=== PATIENT | male | born 1970 | race Caucasian/White ===

== ENCOUNTER 2022-06-06 07:42 | Outpatient (REF) | payer OTHER, SELFPAY ==
[2022-06-06 08:35] LABS: Hematocrit 46.6 % (42.0-52.0); Hemoglobin 15.5 g/dl (14.0-18.0); Mean Corpuscular HGB Conc 33.3 g/dl (31.0-36.0); Mean Corpuscular Volume 84.3 fL (80.0-98.0); Platelet Count 203 X10*3/uL (160-400); Red Blood Count 5.53 X10*6/uL (4.60-5.80); Red Cell Distribution Width 12.8 % (11.0-16.0); White Blood Count 4.6 X10*3/uL (4.8-10.8)
[2022-06-06 09:03] LABS: Alanine Aminotransferase 14 U/L (0-40); Albumin Level 4.3 g/dL (3.5-5.0); Alkaline Phosphatase 71 U/L (39-117); Anion Gap 13 (12-20); Aspartate Amino Transferase 17 U/L (5-37); Bilirubin Total 0.6 mg/dL (0.0-1.0); Blood Urea Nitrogen 15 mg/dL (9-16); Calcium 9.3 mg/dL (8.4-10.2); Carbon Dioxide 25 mmol/L (22-29); Chloride 107 mmol/L (96-108); Cholesterol 232 mg/dL; Estimated Glomerular Filt Rate > 60; Glucose Fasting 93 mg/dL (60-99); HDL Cholesterol 43 mg/dL; LDL Cholesterol Calculated 165 mg/dl; Potassium 4.4 mmol/L (3.3-5.1); Sodium 141 mmol/L (135-145); Total Protein 6.7 g/dL (6.5-8.0); Triglycerides 124 mg/dL
[2022-06-06 09:26] LABS: Prostate Specific Antigen Scr 0.52 ng/mL (<0.05-4.0)
== END 2022-06-06 07:43 | disposition home or self-care (01) ==
LOC: HO.LAB 07:42
PROVIDERS: PCP Physician Assistant; Visit Provider Physician Assistant
DX: Z12.5 Encounter for screening for malignant neoplasm of prostate (principal); Z13.29 Encounter for screening for other suspected endocrine disorder; E66.09 Other obesity due to excess calories; Z68.31 Body mass index [BMI] 31.0-31.9, adult; Z80.42 Family history of malignant neoplasm of prostate
CPT/HCPCS: 36415; 80053; 80061; 84153; 84443; 85027

== ENCOUNTER 2023-06-19 07:52 | Outpatient (AMB) | payer OTHER, SELFPAY ==
--- NOTE | 2023-06-19 07:57 | A.OFFPC_ITS ---
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 Required: No Accompanied by: Self / Same As Patient Allergies No Known Allergies Allergy (Verified 06/19/23 08:05) Medication List - Last Reconciled 06/19/23 by Michael Ramirez PA-C No Known Home Meds Tobacco use date assessed: 06/19/23 Dental Screening Dental Screen Date: 06/19/23 Did you have a dental visit in the last 12 months?: Yes Did you have a dental problem in the last 6 months where you did not have access to dental care?: No Was dental information given to patient?: Patient has dentist HPI Worried about low testosterone; prostate exam HPI Details Patient is a 52-year-old male here today for a follow-up visit.? Patient has a past medical history of obesity, microscopic hematuria, family history of prostate cancer. Recently did labs for integrative Medicine doctor. He is seeing. Cholesterol elevated and free testosterone slightly low. Of note patient was not fasting for his cholesterol labs. Concerns--> Family history of prostate cancer. Most recent PSA at 0.52. Has noted a decreased urinary Will continue to follow on annual basis. .. Obese:? Does understand his BMI is over 30 will work on being more physically active in adapting to better eating habits to reduce his weight VAccine: UTD with COVID vaccine, UTD with Flu vaccine, UTD with Tdap, need Shingles Colorectal cancer screen: Has gotten colonoscopy Sep 2019 - clean repeat 10 years. Lab work: Most recent lab work showing borderline high total cholesterol Laboratory Tests 06/06/22 07:59 Cholesterol 232 PSA Screen 0.52 TSH 1.80 PFSH Medical History Microscopic hematuria Hypercholesteremia Family history of malignant neoplasm of prostate Surgical History H/O colonoscopy History of right knee joint replacement H/O vasectomy Family History Father Prostate cancer Paternal Grandfather Prostate cancer Mother Lung cancer Sister Thyroid cancer Breast cancer Social History (Updated 06/19/23 @ 08:17 by Michael Ramirez PA-C) Housing: House Alcohol intake: current Alcohol intake frequency: a few times a week Alcohol type: beer Patient Tobacco Use Status: Former Tobacco user Quit Date: 1979 e-Cigarette/Vaping Use: Never Used Second Hand Smoke Exposure: No service: No Current occupational status: employed 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 1. Little interest or pleasure in doing things: not at all 2. Feeling down, depressed, or hopeless: not at all 3. Trouble falling or staying asleep, or sleeping too much: not at all 4. Feeling tired or having little energy: not at all 5. Poor appetite or overeating: not at all 6. Feeling bad about yourself - or that you are a failure or have let yourself or your family down: not at all 7. Trouble concentrating on things, such as reading the newspaper or watching television: not at all 8. Moving or speaking so slowly that other people could have noticed. Or the opposite - being so fidgety or restless that you have been moving around a lot more than usual: not at all 9. Thoughts that you would be better off or of hurting yourself in some way: not at all Total score: 0 Depression Screening Interpretation: Negative 86488 - PHQ-9 Billing: Yes Source: Developed by Drs. Frantz Perez, Kim Marcus, Tomi Flores and colleagues, with an educational chacha from [employer]. Thrive Questionnaire Date Thrive assessed: 06/19/23 I am a: Patient What is your living situation today?: I have a steady place to live Within the past 12 months, did the food you bought not last and you didn't have the money to get more?: Never true Within the past 12 months, did you worry whether your food would run out before you got money to buy more?: Never true Do you have trouble paying for medicines?: No Do you have trouble getting transportation to medical appointments?: No Do you have trouble paying your heating and electricity bill?: No Do you have trouble taking care of your child, family member or friend?: No Do you have trouble with day-to-day activities such as bathing, preparing meals, shopping, managing finances, etc.?: No Are you currently unemployed and looking for a job?: No Are you interested in more education?: No Please select the resources that you would like help with: None Currently or been in a relationship where the following occur: no concerns reported AUDIT C Alcohol Use Questionnaire (AUDIT-C) 1. How often do you have a drink containing alcohol?: 2-3 times a week 2. How many drinks containing alcohol do you have on a typical day when you are drinking?: 1 or 2 3. How often do you have six or more drinks on one occasion?: Less than monthly Total Score: 4 MAGUI-7 AMB Questionnaire MAGUI-7 Date MAGUI - 7 assessed: 06/19/23 Feeling nervous, anxious, or on edge: 0 = Not at all Not being able to stop or control worryin = Not at all Worrying too much about different things: 0 = Not at all Trouble relaxin = Not at all Being so restless that it is hard to sit still: 0 = Not at all Becoming easily annoyed or irritable: 0 = Not at all Feeling afraid as if something awful might happen: 0 = Not at all Total MAGUI-7 score (0-4 normal; 5-9 mild; 10-14 moderate; 15-21 severe): 0 Source: Developed by Drs. Frantz Perez, Kim Marcus, Tomi Flores and colleagues, with an educational chacha from [employer]. MAGUI-7 Assessment Billing MAGUI-7 Assessment Tool: MAGUI-7 Assessment 49364 Review of Systems Const Denies body aches, Denies chills, Denies excessive sweating, Denies fatigue, Denies fever(s) and Denies headache(s) Eyes Denies blurry vision ENT Denies dysphagia, Denies vertigo, Denies dizziness, Denies headache(s), Denies hearing loss and Denies tinnitus Card Denies chest pain, Denies chest pain with activity, Denies syncope, Denies irregular heart rhythm and Denies dyspnea Resp Denies chest congestion, Denies cough, Denies hemoptysis, Denies dyspnea and Denies wheezing GI Denies abdominal pain, Denies melena, Denies hematochezia, Denies coffee ground emesis, Denies dysphagia, Denies diarrhea, Denies nausea and Denies vomiting Denies difficulty urinating, Denies dysuria, Denies urinary frequency, Denies urinary hesitancy and Denies urinary urgency Musc Denies arthralgias, Denies limited range of motion, Denies muscle cramps and Denies muscle weakness Skin/Breast Denies rash and Denies skin ulcer Neuro Denies Abnormal speech present, Denies confusion, Denies vertigo, Denies dizziness, Denies syncope, Denies headache(s), Denies memory loss and Denies seizure-like activity Psych Denies anxiety, Denies confusion, Denies depression, Denies memory loss, Denies panic attacks and Denies paranoia Endo Denies excessive sweating, Denies fatigue, Denies flushing, Denies polydipsia and Denies polyuria John/Lymph Denies easy bleeding and Denies easy bruising Aller/Immun Denies wheezing Physical exam (Primary Care) BMI result Body Mass Index 30.9 BMI Assessment/Plan discussion: High Tobacco/Smoking Status: Tobacco use Status Tobacco use date assessed 05/02/22 07/03/22 11:40 Patient Tobacco Use Status Former Tobacco user 07/03/22 11:47 e-Cigarette/Vaping Use Never Used 07/03/22 11:47 Depression Screening Interpretation: Negative Thrive Assessment: Date of Thrive Assessment Date Thrive assessed 05/02/22 07/03/22 11:40 Currently or been in a relationship where the following occur: no concerns reported Const General: cooperative, comfortable, no acute distress, alert and awake; No confusion Nutritional Appearance: well nourished Orientation/consciousness: oriented to person, oriented to place, patient oriented x3 and No confusion HENMT Head: Yes normocephalic Ears: external ears normal and TM's normal bilaterally General nose exam: Normal nasal mucous membranes and turbinates present Face and sinus: No sinus tenderness Mouth: Normal oral and palatal mucosa present and tongue normal Teeth and gingiva: dentition normal and gingiva normal Throat: Yes posterior oropharynx normal, Yes tonsils normal and Yes uvula midline Eyes Conjunctivae: conjunctivae normal Sclerae: sclerae normal Pupils: Equal, round and reactive pupils present EOM: EOMs intact bilaterally Direct Ophthalmoscopy: No no photophobia Neck Neck: Yes no lymphadenopathy, No tender and Yes no JVD Thyroid: Thyroid normal Carotids: no bruits Chest Chest palpation & inspection: no tenderness Resp Effort & Inspection: normal respiratory effort, no audible wheezes, not labored and no stridor Auscultation: no crackles, no rales, no rhonchi and no wheezes Cardio Jugular venous distension: no JVD Rate: regular rate, not bradycardic and not tachycardic Rhythm: regular rhythm Heart sounds: no murmurs and normal S1 and S2 Bruits: no carotid bruits Peripheral pulses: Peripheral pulses 2+ throughout GI Inspection: Yes normal to inspection, No abdominal wall ecchymosis and No visible herniation Palpation (GI): Soft to palpation, nontender, no guarding, not rigid and No hepatosplenomegaly present Auscultation: normoactive bowel sounds General: Yes no CVA tenderness Back/Spine/Pelvis Back: no CVA tenderness and No back tenderness Cervical Spine: cervical ROM normal Thoracic/Lumbar Spine: thoracic and lumbar spine normal to inspection, straight leg raise negative bilaterally, No thoraco-lumbar ROM limited and No lumbar spinal tenderness Skin General skin exam: no rashes or lesions noted and dry skin Lesions: no lesions Rashes: no rashes Wounds: no wounds Neuro General: oriented to person, oriented to place, patient oriented x3, CN's II-XI intact bilaterally and No confusion Cranial nerves: Yes Equal, round and reactive pupils present and Yes Normal accommodation reflex present Cognition (Neuro): normal cognition Speech: No Abnormal speech present Gait exam (Neuro): Normal gait present Motor exam (neuro): 5/5 motor strength present throughout Extrem Right upper extremity: full ROM; no cyanosis Left upper extremity: full ROM; no cyanosis Right lower extremity: no edema Left lower extremity: no edema Psych Appearance: grossly normal Mental Status: mental status grossly normal Speech and movement: Normal speech and movement present Affect: normal affect Attitude: cooperative Thought process: Normal thought process present Assessment and Plan Assessment & Plan (1) Family history of prostate cancer in father: Code(s): Z80.42 - Family history of malignant neoplasm of prostate Plan: Patient is a strong family history particularly prostate cancer. Most recent PSA is 0.52. He does report some noticeable weak urinary stream. Not interested in starting medication at this time would like to work on natural nonpharmacological treatments. Interested in pelvic floor therapy. Will continue to follow PSA on annual basis. (2) Obese: Code(s): E66.9 - Obesity, unspecified Qualifiers: Obesity type: due to excess calories Obesity classification: adult class 1 (BMI 30 - 34.9) Serious obesity comorbidity presence: without serious comorbidity Body mass index: BMI 31.0-31.9 Qualified Code(s): E66.09 - Other obesity due to excess calories; Z68.31 - Body mass index [BMI] 31.0-31.9, adult Plan: Have noted weight loss since last office visit. Patient does understand his BMI is over 30 will work on being more physically active and adapting to better eating habits to reduce his weight (3) Borderline high cholesterol: Code(s): E78.9 - Disorder of lipoprotein metabolism, unspecified Plan: Patient's most recent fasting lipid panel showing borderline high total cholesterol. He will work on lifestyle modifications to reduce his high cholesterol foods in his diet. Goal total cholesterol to be below 200 (4) BPH (benign prostatic hyperplasia): Code(s): N40.0 - Benign prostatic hyperplasia without lower urinary tract symptoms Qualifiers: Lower urinary tract symptom presence: symptoms present Lower urinary tract symptom detail: unspecified Qualified Code(s): N40.1 - Benign prostatic hyperplasia with lower urinary tract symptoms Plan: Prostate exam today in office revealing somewhat of a enlarged prostate though no nodules. Orders: Orders Prostate Specific Antigen Scr Today N40.1 - Benign prostatic hyperplasia with lower urinary tract symptoms, Z12.5 - Encounter for screening for malignant neoplasm of prostate Lipid Panel Today E78.9 - Disorder of lipoprotein metabolism, unspecified Comprehensive [place]. Panel Fast Today Z13.1 - Encounter for screening for diabetes mellitus Coding Level of Care Code Est Pt Level 4 (62568) Diagnoses Family history of prostate cancer in father Z80.42 Class 1 obesity due to excess calories without serious comorbidity with body mass index (BMI) of 31.0 to 31.9 in adult E66.09; Z68.31 Obesity type: due to excess calories Obesity classification: adult class 1 (BMI 30 - 34.9) Serious obesity comorbidity presence: without serious comorbidity Body mass index: BMI 31.0-31.9 Borderline high cholesterol E78.9 Benign prostatic hyperplasia with lower urinary tract symptoms, symptom details unspecified N40.1 Lower urinary tract symptom presence: symptoms present Lower urinary tract symptom detail: unspecified Additional Codes MAGUI-7 Assessment Billing - MAGUI-7 Assessment Tool: MAGUI-7 Assessment 20456 ([id number])
[2023-06-19 07:59] VITALS: BP 118/86; PULSE 76; O2SAT 97; BMI 30.9
== END 2023-06-19 08:30 | disposition home or self-care (01) ==
PROVIDERS: PCP Physician Assistant; Visit Provider Physician Assistant
DX: Z80.42 Family history of malignant neoplasm of prostate (principal); E66.09 Other obesity due to excess calories; Z68.31 Body mass index [BMI] 31.0-31.9, adult; E78.9 Disorder of lipoprotein metabolism, unspecified; N40.1 Benign prostatic hyperplasia with lower urinary tract symptoms
CPT/HCPCS: 99214

== ENCOUNTER 2023-07-09 06:08 | Outpatient (REF) | payer OTHER, SELFPAY ==
[2023-07-09 07:01] LABS: Hematocrit 45.5 % (42.0-52.0); Hemoglobin 15.5 g/dl (14.0-18.0); Mean Corpuscular HGB Conc 34.1 g/dl (31.0-36.0); Mean Platelet Volume 10.3 fL (9.4-12.4); Platelet Count 197 X10*3/uL (160-400); Red Blood Count 5.35 X10*6/uL (4.60-5.80); Red Cell Distribution Width 12.7 % (11.0-16.0)
[2023-07-09 07:23] LABS: Alanine Aminotransferase 12 U/L (0-40); Alkaline Phosphatase 75 U/L (39-117); Anion Gap 12 (12-20); Aspartate Amino Transferase 17 U/L (5-37); Bilirubin Total 0.3 mg/dL (0.0-1.0); Blood Urea Nitrogen 14 mg/dL (9-16); Calcium 9.3 mg/dL (8.4-10.2); Carbon Dioxide 25 mmol/L (22-29); Chloride 107 mmol/L (96-108); Cholesterol 245 mg/dL (<200); Estimated Glomerular Filt Rate > 60; Glucose Fasting 91 mg/dL (60-99); HDL Cholesterol 40 mg/dL (>40); LDL Cholesterol Calculated 168 mg/dL (<100); Potassium 4.3 mmol/L (3.3-5.1); Sodium 140 mmol/L (135-145); Total Protein 6.8 g/dL (6.5-8.0); Triglycerides 188 mg/dL (<150)
[2023-07-09 07:30] LABS: Prostate Specific Antigen Scr 0.57 ng/mL (<0.05-4.0)
[2023-07-09 07:31] LABS: TSH reflex Free T4 2.26 uIU/mL (0.32-4.0)
== END 2023-07-09 06:09 | disposition home or self-care (01) ==
LOC: HO.LAB 06:08
PROVIDERS: PCP Physician Assistant; Visit Provider Physician Assistant
DX: Z12.5 Encounter for screening for malignant neoplasm of prostate (principal); Z13.1 Encounter for screening for diabetes mellitus; E78.9 Disorder of lipoprotein metabolism, unspecified; Z80.42 Family history of malignant neoplasm of prostate; E78.00 Pure hypercholesterolemia, unspecified; E66.9 Obesity, unspecified
CPT/HCPCS: 36415; 80053; 80061; 84153; 84443; 85027

== ENCOUNTER 2023-09-09 08:00 | Outpatient (RCR) | payer OTHER, SELFPAY ==
--- NOTE | 2023-07-29 08:58 | MHC.PT.EP ---
[facility] [place] [facility] [place] [facility] [place] [facility] [address] Vandana Carroll [address] [phone] F: [phone] F: [phone] F: [phone] F: [phone] Physical Therapy Plan of Care Date of Evaluation: 07/29/23 Date of Surgery: NA Diagnosis: Benign prostatic hyperplasia with lower urinary tract symptoms Poor urinary stream Assessment: Andres is a 52 year old male who is referred to PT for Benign prostatic hyperplasia with lower urinary tract symptoms, Poor urinary stream . He reports of having symptoms of difficulty initiating a stream and slowed stream for about 3 years. He was diagnosed with BPH last year. He is here in PT to learn exercises to prevent his symptoms from getting worse. On PT examination he presented with good lumbar and B LE ROM and strength, symptoms of slowed stream and difficulty initiating a stream. He denies having any other bladder or bowel issues. He is sexually active and occasionally has difficulty with maintaining an erection. He would benefit from skilled PT to address the aforementioned impairments and improve tolerance to functional activities. Frequency and Duration: The patient will be seen 1/week for 6 weeks. Short Term Goals: 1. Internal pelvic floor exam will be done in 2 weeks. 2. Pt will report of having 50% less difficulty with bladder emptying in 3 weeks. 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 Pt will report of having an 50% improvement in urinary stream in 5 weeks. 2. Pt will be independent with [facility] for symptom management and maintenance following d/c in 5 weeks. Treatment Plan: Modalities to reduce pain, spasms and effusion. Manual therapy to restore motion and function. Therapeutic exercise to improve strength and flexibility. Neuromuscular re-education for posture and balance. Therapeutic activities to return to functional activities of daily living. Electronically signed by: Please sign and return to therapist. Thank you for your referral.
--- NOTE | 2023-09-23 09:28 | MHC.PT.DC ---
[facility] [place] Office [place] Office [place] Office [address] Vandana Carroll [address] [phone] F: [phone] F: [phone] F: [phone] F: [phone] Physical Therapy Discharge Report Diagnosis: Benign prostatic hyperplasia with lower urinary tract symptoms Poor urinary stream Date of Surgery: NA Date of Evaluation: 07/29/23 Date of Discharge: 09/23/23 Treatments to Date: 3 Cancellations to Date: 0 No Shows to Date: 0 Discharge Status: Achieved Goals Improved Function Independent with HEP Discharge Summary: Andres completed 3 PT visits and has achieved all goals set for him. He is independent with all HEP as well. He is therefore being d/c from PT. Electronically signed by: Negra Slaughter, PT DPT Please sign and return to therapist. Thank you for your referral.
== END 2023-09-23 09:29 | disposition home or self-care (01) ==
LOC: HO.PT 08:00
PROVIDERS: PCP Physician Assistant; Visit Provider Physician Assistant
DX: N40.1 Benign prostatic hyperplasia with lower urinary tract symptoms (principal); R39.12 Poor urinary stream
CPT/HCPCS: 97112; 97140; 97161

== ENCOUNTER 2024-07-08 07:51 | Outpatient (AMB) | payer OTHER, SELFPAY ==
[2024-07-08 08:05] VITALS: BP 118/72; PULSE 80; O2SAT 98; BMI 31.8
--- NOTE | 2024-07-08 08:05 | A.OFFPC_ITS ---
Vital Signs 3 07/08/24 08:05 Height 6 ft 1 in Weight 241 lb BMI 31.8 BP 118/72 Blood Pressure Location Lt brachial Position Sitting Pulse 80 Pulse Source Pulse Oximeter Pulse Oximetry (%) 98 Oxygen Delivery Method Room Air Intake Visit Reasons: Annual Exam Allergies No Known Allergies Allergy (Verified 07/08/24 08:12) Medication List - Last Reconciled 07/08/24 by Michael Ramirez PA-C No Known Home Meds Tobacco use date assessed: 07/08/24 Dental Screening Dental Screen Date: 07/08/24 Did you have a dental visit in the last 12 months?: Yes Did you have a dental problem in the last 6 months where you did not have access to dental care?: No Was dental information given to patient?: Patient has dentist HPI Annual Exam 2 HPI0 Details Patient is a 53-year-old male here today for a routine annual physical.? Patient has a past medical history of obesity, microscopic hematuria, family history of prostate cancer. Recently did labs for integrative Medicine doctor. He is seeing. Cholesterol elevated and free testosterone slightly low. Of note patient was not fasting for his cholesterol labs. Concerns-->reports having right knee pain and swelling lately, has has ACL repair at age 24. He reports lately having some pain and decreased range of motion in his right knee. He does not know any particular recent trauma to his right knee. He would like to see orthopedic for evaluation. Also reports having a rash behind his left ear. Has been using topical steroid antifungal cream without any significant resolution of his rash. Family history of prostate cancer. Most recent PSA at 0.52. Has noted a decreased urinary Will continue to follow on annual basis. .. Obese: Unfortunately gained weight since last office visit. He does admit to some dietary indiscretion. ? Does understand his BMI is over 30 will work on being more physically active in adapting to better eating habits to reduce his weight Vaccine: UTD with COVID vaccine, considering flu vaccine, , up-to-date with the shingles vaccine, ? Tdap vaccine Colorectal cancer screen: Has gotten colonoscopy Sep 2019 - clean repeat 10 years. [facility] Medical History Microscopic hematuria Hypercholesteremia Family history of malignant neoplasm of prostate Surgical History H/O colonoscopy History of right knee joint replacement H/O vasectomy Family History Father Prostate cancer Paternal Grandfather Prostate cancer Mother Lung cancer Sister Thyroid cancer Breast cancer Social History (Updated 07/08/24 @ 08:19 by Michael Ramirez PA-C) Housing: House Alcohol intake: current Alcohol intake frequency: a few times a week Alcohol type: beer Patient Tobacco Use Status: Former Tobacco user Tobacco use type: Cigarette e-Cigarette/Vaping Use: Never Used Second Hand Smoke Exposure: No service: No Current occupational status: employed 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 1. Little interest or pleasure in doing things: not at all 2. Feeling down, depressed, or hopeless: not at all 3. Trouble falling or staying asleep, or sleeping too much: not at all 4. Feeling tired or having little energy: several days 5. Poor appetite or overeating: not at all 6. Feeling bad about yourself - or that you are a failure or have let yourself or your family down: not at all 7. Trouble concentrating on things, such as reading the newspaper or watching television: not at all 8. Moving or speaking so slowly that other people could have noticed. Or the opposite - being so fidgety or restless that you have been moving around a lot more than usual: not at all 9. Thoughts that you would be better off or of hurting yourself in some way: not at all Total score: 1 Depression Screening Interpretation: Negative Depression Screening Done: Yes 35568 - PHQ-9 Billing: Yes Source: Developed by Drs. Frantz Perez, Kim Marcus, Tomi Flores and colleagues, with an educational chacha from [employer]. Thrive Questionnaire Date Thrive assessed: 07/06/24 I am a: Patient What is your living situation today?: I have a steady place to live Within the past 12 months, did the food you bought not last and you didn't have the money to get more?: Never true Within the past 12 months, did you worry whether your food would run out before you got money to buy more?: Never true Do you have trouble paying for medicines?: No Do you have trouble getting transportation to medical appointments?: No Do you have trouble paying your heating and electricity bill?: No Do you have trouble taking care of your child, family member or friend?: No Do you have trouble with day-to-day activities such as bathing, preparing meals, shopping, managing finances, etc.?: No Are you currently unemployed and looking for a job?: No Are you interested in more education?: No Please select the resources that you would like help with: None Currently or been in a relationship where the following occur: No concerns reported THRIVE Score: 0 AUDIT C Alcohol Use Questionnaire (AUDIT-C) 1. How often do you have a drink containing alcohol?: 2-3 times a week 2. How many drinks containing alcohol do you have on a typical day when you are drinking?: 1 or 2 3. How often do you have six or more drinks on one occasion?: Less than monthly Total Score: 4 MAGUI-7 AMB Questionnaire MAGUI-7 Date MAGUI - 7 assessed: 07/08/24 Feeling nervous, anxious, or on edge: 0 = Not at all Not being able to stop or control worryin = Not at all Worrying too much about different things: 0 = Not at all Trouble relaxin = Not at all Being so restless that it is hard to sit still: 0 = Not at all Becoming easily annoyed or irritable: 0 = Not at all Feeling afraid as if something awful might happen: 0 = Not at all Total MAGUI-7 score (0-4 normal; 5-9 mild; 10-14 moderate; 15-21 severe): 0 Source: Developed by Drs. Frantz Perez, Kim Marcus, Tomi Flores and colleagues, with an educational chacha from [employer]. MAGUI-7 Assessment Billing MAGUI-7 Assessment Tool: MAGUI-7 Assessment 90009 Review of Systems Const Denies body aches, Denies chills, Denies excessive sweating, Denies fatigue, Denies fever(s) and Denies headache(s) Eyes Denies blurry vision ENT Denies dysphagia, Denies vertigo, Denies dizziness, Denies headache(s), Denies hearing loss and Denies tinnitus Card Denies chest pain, Denies chest pain with activity, Denies syncope, Denies irregular heart rhythm and Denies dyspnea Resp Denies chest congestion, Denies cough, Denies hemoptysis, Denies dyspnea and Denies wheezing GI Denies abdominal pain, Denies melena, Denies hematochezia, Denies coffee ground emesis, Denies dysphagia, Denies diarrhea, Denies nausea and Denies vomiting Denies difficulty urinating, Denies dysuria, Denies urinary frequency, Denies urinary hesitancy and Denies urinary urgency Musc Denies arthralgias, Denies limited range of motion, Denies muscle cramps and Denies muscle weakness Skin/Breast Denies rash and Denies skin ulcer Neuro Denies Abnormal speech present, Denies confusion, Denies vertigo, Denies dizziness, Denies syncope, Denies headache(s), Denies memory loss and Denies seizure-like activity Psych Denies anxiety, Denies confusion, Denies depression, Denies memory loss, Denies panic attacks and Denies paranoia Endo Denies excessive sweating, Denies fatigue, Denies flushing, Denies polydipsia and Denies polyuria Aller/Immun Denies wheezing Physical exam (Primary Care) Vital Signs: Last Vital Signs Pulse 80 07/08/24 08:05 BP 118/72 07/08/24 08:05 Pulse Ox 98 07/08/24 08:05 Oxygen Delivery Method Room Air 07/08/24 08:05 BMI result Body Mass Index 31.8 Tobacco/Smoking Status: Tobacco use Status Tobacco use date assessed 07/08/24 07/08/24 08:11 Patient Tobacco Use Status Former Tobacco user 07/08/24 08:11 Tobacco use type Cigarette 07/08/24 08:11 e-Cigarette/Vaping Use Never Used 07/08/24 08:11 PHQ-9: PHQ-9 Score PHQ-9: Total score 1 07/08/24 08:11 Depression Screening Interpretation: Negative Thrive Assessment: Date of Thrive Assessment Date Thrive assessed 07/06/24 07/08/24 08:11 Currently or been in a relationship where the following occur: No concerns reported Const General: cooperative, comfortable, no acute distress, alert and awake; No confusion Orientation/consciousness: oriented to person, oriented to place, patient oriented x3 and No confusion HENIN Head: Yes normocephalic Head images: 2 1. SLIGHTLY PINKISH DRY APPEARANCE RAISED SKIN RASH BEHIND LEFT EAR. Ears: external ears normal and TM's normal bilaterally Face and sinus: No sinus tenderness Mouth: Normal oral and palatal mucosa present and tongue normal Teeth and gingiva: dentition normal and gingiva normal Throat: Yes posterior oropharynx normal, Yes tonsils normal and Yes uvula midline Eyes Conjunctivae: conjunctivae normal Sclerae: sclerae normal Pupils: Equal, round and reactive pupils present EOM: EOMs intact bilaterally Direct Ophthalmoscopy: No no photophobia Neck Neck: Yes no lymphadenopathy, No tender and Yes no JVD Thyroid: Thyroid normal Carotids: no bruits Chest Chest palpation & inspection: no tenderness Resp Effort & Inspection: normal respiratory effort, no audible wheezes, not labored and no stridor Auscultation: no crackles, no rales, no rhonchi and no wheezes Cardio Jugular venous distension: no JVD Rate: regular rate, not bradycardic and not tachycardic Rhythm: regular rhythm Bruits: no carotid bruits Peripheral pulses: Peripheral pulses 2+ throughout GI Inspection: Yes normal to inspection, No abdominal wall ecchymosis and No visible herniation Palpation (GI): Soft to palpation, nontender, no guarding, not rigid and No hepatosplenomegaly present Auscultation: normoactive bowel sounds General: Yes no CVA tenderness Back/Spine/Pelvis Back: no CVA tenderness and No back tenderness Cervical Spine: cervical ROM normal Thoracic/Lumbar Spine: thoracic and lumbar spine normal to inspection, straight leg raise negative bilaterally, No thoraco-lumbar ROM limited and No lumbar spinal tenderness Skin Lesions: no lesions Rashes: no rashes Wounds: no wounds Neuro General: oriented to person, oriented to place, patient oriented x3, CN's II-XI intact bilaterally and No confusion Cranial nerves: Yes Equal, round and reactive pupils present and Yes Normal accommodation reflex present Cognition (Neuro): normal cognition Speech: No Abnormal speech present Gait exam (Neuro): Normal gait present Motor exam (neuro): 5/5 motor strength present throughout Extrem Right upper extremity: full ROM; no cyanosis Left upper extremity: full ROM; no cyanosis Right lower extremity: no edema Left lower extremity: no edema Psych Appearance: grossly normal Mental Status: mental status grossly normal Affect: normal affect Attitude: cooperative Thought process: Normal thought process present Coding Level of Care Code Est Pt Prev Care 40-64y(84930) Diagnoses Annual physical exam Z00.00 Borderline high cholesterol E78.9 Dermatitis L30.9 Family history of prostate cancer in father Z80.42 Chronic pain of right knee M25.561; G89.29 Chronicity: chronic Additional Codes MAGUI-7 Assessment Billing - MAGUI-7 Assessment Tool: MAGUI-7 Assessment 15167 ([id number]) Assessment & Plan Assessment & Plan (1) Annual physical exam: Code(s): Z00.00 - Encounter for general adult medical examination without abnormal findings Category: Medical Plan: As per HPI (2) Borderline high cholesterol: Code(s): E78.9 - Disorder of lipoprotein metabolism, unspecified Category: Medical Plan: Patient has a history of borderline cholesterol. Has been working on dietary and lifestyle modifications to reduce his cholesterol. Will recheck fasting lipids with goal total cholesterol to be below 200 (3) Dermatitis: Code(s): L30.9 - Dermatitis, unspecified Category: Medical Plan: As per HPI, patient has had a rash behind left ear for few weeks now and has been using antifungal cream without much relief. Interested in seeing a reverberatory furnace supervisor for evaluation. Will supply patient with a topical steroid ointment as appearance seems to be eczematous (4) Family history of prostate cancer in father: Code(s): Z80.42 - Family history of malignant neoplasm of prostate Category: Medical Plan: Patient does have strong family history of prostate cancer. Most recent PSA has been normal. Will continue to follow PSA. Denies any particular urinary symptoms though does report getting up once at night to urinate though he attributes to fluid intake in the afternoons. (5) Right knee pain: Code(s): M25.561 - Pain in right knee Category: Medical Qualifiers: Chronicity: chronic Qualified Code(s): M25.561 - Pain in right knee; G89.29 - Other chronic pain Plan: Patient has a history of a traumatic right ACL tear with repair I would he is 24. He has been having some pain and swelling with certain movements and would like to see orthopedic for evaluation. Orders: Orders 2 Prostate Specific Antigen Scr Today N40.1 - Benign prostatic hyperplasia with lower urinary tract symptoms, Z12.5 - Encounter for screening for malignant neoplasm of prostate Complete Blood Count no Diff Today Z13.1 - Encounter for screening for diabetes mellitus Lipid Panel Today E78.9 - Disorder of lipoprotein metabolism, unspecified Comprehensive [place]. Panel Fast Today Z13.1 - Encounter for screening for diabetes mellitus Referrals 2 Dermatology Referral L30.9 - Dermatitis, unspecified Orthopedics Referral G89.29 - Other chronic pain, M25.561 - Pain in right knee Medications: New 2 triamcinolone acetonide 0.1% 1 appl topical DAILY 30 days 30 grams 1RF L30.9 - Dermatitis, unspecified
== END 2024-07-08 08:35 | disposition home or self-care (01) ==
PROVIDERS: PCP Physician Assistant; Visit Provider Physician Assistant
DX: Z00.00 Encounter for general adult medical examination without abnormal findings (principal); E78.9 Disorder of lipoprotein metabolism, unspecified; L30.9 Dermatitis, unspecified; Z80.42 Family history of malignant neoplasm of prostate; M25.561 Pain in right knee; G89.29 Other chronic pain

== ENCOUNTER → 2024-07-08 07:51 | Outpatient (BNVA) | payer OTHER, SELFPAY | PROVIDERS: PCP Physician Assistant; Visit Provider Physician Assistant | DX: Z00.01 Encounter for general adult medical examination with abnormal findings (principal); E78.9 Disorder of lipoprotein metabolism, unspecified; L30.9 Dermatitis, unspecified; G89.29 Other chronic pain; M25.561 Pain in right knee; Z80.42 Family history of malignant neoplasm of prostate | CPT/HCPCS: 96127 ==

== ENCOUNTER 2024-08-03 08:07 | Outpatient (REF) | payer OTHER, SELFPAY ==
[2024-08-03 09:27] LABS: Hematocrit 43.5 % (42.0-52.0); Hemoglobin 14.7 g/dl (14.0-18.0); Mean Corpuscular HGB Conc 33.8 g/dl (31.0-36.0); Mean Corpuscular Hemoglobin 28.4 pg (27.0-33.0); Mean Corpuscular Volume 84.1 fL (80.0-98.0); Mean Platelet Volume 10.3 fL (9.4-12.4); Platelet Count 198 X10*3/uL (160-400); Red Blood Count 5.17 X10*6/uL (4.60-5.80); Red Cell Distribution Width 12.8 % (11.0-16.0)
[2024-08-03 09:57] LABS: Alanine Aminotransferase 12 U/L (0-40); Anion Gap 9 (12-20); Aspartate Amino Transferase 21 U/L (5-37); Bilirubin Total 0.5 mg/dL (0.0-1.0); Blood Urea Nitrogen 19 mg/dL (9-16); Calcium 9.1 mg/dL (8.4-10.2); Carbon Dioxide 26 mmol/L (22-29); Chloride 107 mmol/L (96-108); Cholesterol 204 mg/dL (<200); Estimated Glomerular Filt Rate > 60; Glucose Fasting 98 mg/dL (60-99); HDL Cholesterol 41 mg/dL (>40); Potassium 4.2 mmol/L (3.3-5.1); Sodium 138 mmol/L (135-145); Total Protein 6.8 g/dL (6.5-8.0); Triglycerides 150 mg/dL (<150)
[2024-08-03 09:58] LABS: Alkaline Phosphatase 80 U/L (39-117); LDL Cholesterol Calculated 133 mg/dL (<100)
[2024-08-03 10:08] LABS: Prostate Specific Antigen Scr 0.64 ng/mL (<0.05-4.0)
== END 2024-08-03 08:08 | disposition home or self-care (01) ==
LOC: HO.LAB 08:07
PROVIDERS: PCP Physician Assistant; Visit Provider Physician Assistant
DX: Z13.1 Encounter for screening for diabetes mellitus (principal); Z12.5 Encounter for screening for malignant neoplasm of prostate; N40.1 Benign prostatic hyperplasia with lower urinary tract symptoms; E78.9 Disorder of lipoprotein metabolism, unspecified
CPT/HCPCS: 36415; 80053; 80061; 84153; 85027

== ENCOUNTER 2024-08-12 08:41 | Outpatient (REF) | payer OTHER, SELFPAY ==
--- NOTE | ~2024-08-12 | XR_ITS ---
EXAMINATION: BILATERAL KNEE SERIES CLINICAL INFORMATION: Primary osteoarthritis. COMPARISON: None available. TECHNIQUE: 3 views of the right knee including AP upright. Single AP upright left knee FINDINGS: Right knee: Postoperative changes related to prior anterior cruciate ligament reconstruction with screw in proximal tibia and orthopedic device overlying the anterior lateral metaphysis of the femur. Patellofemoral compartment: There is non-uniform joint space narrowing marginal osteophytes indicative of mzxm-th-zwhqzyue osteoarthritis. The medial and lateral compartments are unremarkable. No effusion. Left knee: The medial and lateral compartments are unremarkable. Surrounding bone and soft tissues are unremarkable. XR/XR knee RT 3V IMPRESSION: Right knee: Postoperative changes. Patellofemoral joint arthritis. Left knee: Limited exam. Unremarkable. Electronically signed by: Cornel Zarco MD 08/18/2024 11:49 AM [facility] CHAUDHARI
--- NOTE | ~2024-08-12 | XR_ITS ---
EXAMINATION: BILATERAL KNEE SERIES CLINICAL INFORMATION: Primary osteoarthritis. COMPARISON: None available. TECHNIQUE: 3 views of the right knee including AP upright. Single AP upright left knee FINDINGS: Right knee: Postoperative changes related to prior anterior cruciate ligament reconstruction with screw in proximal tibia and orthopedic device overlying the anterior lateral metaphysis of the femur. Patellofemoral compartment: There is non-uniform joint space narrowing marginal osteophytes indicative of hxpy-sl-yjyziqly osteoarthritis. The medial and lateral compartments are unremarkable. No effusion. Left knee: The medial and lateral compartments are unremarkable. Surrounding bone and soft tissues are unremarkable. XR/XR knee LT 1V IMPRESSION: Right knee: Postoperative changes. Patellofemoral joint arthritis. Left knee: Limited exam. Unremarkable. Electronically signed by: Cornel Zarco MD 08/18/2024 11:49 AM [facility] CHAUDHARI
== END 2024-08-12 08:42 | disposition home or self-care (01) ==
LOC: HO.HOSX 08:41
PROVIDERS: Visit Provider Physician Assistant
DX: M25.562 Pain in left knee (principal); M17.11 Unilateral primary osteoarthritis, right knee
CPT/HCPCS: 73560; 73562

== ENCOUNTER 2024-08-12 08:58 | Outpatient (AMB) | payer OTHER, SELFPAY ==
--- NOTE | 2024-08-12 09:09 | A.OFFVIS_ITS ---
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 Hx of ACL repair at age 24. Patient was recently seen by his PCP who referred patient to orthopedics for pain and decreased ROM. Denies any recent injury. Patient reports his pain has been present for the past 5-6 years. No recent treatment. States he regularly exercises however he is unable to do certain exercises such as lunging. His pain is located around and under his kneecap. 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 States he has most of his pain with deep knee lunging. He has some stiffness in the morning but it does ease up throughout the day. He is active and works out every day. 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 He does not have a lot of increased pain with prolonged standing. He had a right knee ACL reconstruction approximately 25 years ago. [facility] Medical History (Updated 08/12/24 @ 09:36 by Sheba Azevedo PA-C) Microscopic hematuria Hypercholesteremia Family history of malignant neoplasm of prostate Surgical History (Updated 08/12/24 @ 09:14 by Cammy Burt [facility]) H/O colonoscopy History of right knee joint replacement H/O vasectomy Family History Father Prostate cancer Paternal Grandfather Prostate cancer Mother Lung cancer Sister Thyroid cancer Breast cancer Social History (Updated 07/08/24 @ 08:19 by Michael Ramirez PA-C) Housing: House Alcohol intake: current Alcohol intake frequency: a few times a week Alcohol type: beer Patient Tobacco Use Status: Former Tobacco user Tobacco use type: Cigarette e-Cigarette/Vaping Use: Never Used Second Hand Smoke Exposure: No service: No Current occupational status: employed 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 Current occupational exposures/hazards: No Cognitive needs: No Hearing needs: No Vision needs: Yes Review of Systems Const All systems reviewed & are unremarkable except as noted in HPI and below Physical Exam Vital Signs: BMI result Body Mass Index 31.8 Const General: cooperative and no acute distress Orientation/consciousness: patient oriented x3 Resp Effort & Inspection: normal respiratory effort and able to speak in complete sentences Cardio Peripheral pulses: Peripheral pulses 2+ throughout Neuro General: patient oriented x3 Extrem Other: Right knee skin intact, no erythema or joint effusion. No Tenderness along the medial joint line. ROM full with crepitus. Negative steinmans. No ligamentous laxity. NVI. Results Reviewed Results Reviewed: X-rays of the right knee obtained in the office today show lateralization of the patella with patellofemoral arthritis. Assessment & Plan Assessment & Plan (1) Patellofemoral arthritis of right knee: Code(s): M17.11 - Unilateral primary osteoarthritis, right knee Category: Medical Plan: We discussed options today which include physical therapy for quad strength hamstring strength glute strength to help with stabilization. I did discuss possible modification of activity with deep lunging activities if this continues to cause knee pain. Overall he can increase activities as tolerated it has any questions or concerns she will contact our office otherwise follow up as needed. Orders: Orders XR knee RT 3V Today M17.11 - Unilateral primary osteoarthritis, right knee XR knee LT 1V Today M25.562 - Pain in left knee PT Evaluation and Treatment Today M17.11 - Unilateral primary osteoarthritis, right knee Coding Level of Care Code New Pt Level 3 (48944) Complex EM visit Add On G2211 Diagnoses Patellofemoral arthritis of right knee M17.11
[2024-08-12 09:14] VITALS: BMI 31.8
== END 2024-08-12 09:36 | disposition home or self-care (01) ==
PROVIDERS: PCP Physician Assistant; Visit Provider Physician Assistant
DX: M17.11 Unilateral primary osteoarthritis, right knee (principal)
CPT/HCPCS: 99203

== ENCOUNTER 2024-10-14 13:57 | Outpatient (RCR) | payer OTHER, SELFPAY ==
--- NOTE | 2024-09-07 11:38 | MHC.PT.EP ---
[facility] [place] Office [place] Office [place] Office [address] [phone] F: [phone] F: [phone] F: [phone] F: [phone] Physical Therapy Plan of Care Date of Evaluation: 09/07/24 Date of Surgery: Diagnosis: Rt KNEE PATELLOFEMORAL ARTHRITIS Assessment: 54 YO MALE REF TO PT W PROGRESSIVE Rt PFPS- H/O Rt ACL RECONSTRUCTION W HIS HS AUTOGRAFT IN 1994. HE DENIES TRAUMA- NOTES HE GOES TO THE GYM 5 x WK FOR CLASSES- HE HAS DECR MJ TO DESCENDING STAIRS, LUNGING, SQUATTING, AND INCR SXS IN THE AM. OBJECTIVELY, HE HAS DECR Rt PATELLAR MOB, STRENGTH DEFICITS IN CORE MM (TA/ INT OBL AND GLUTES), DECR TERMINAL EXT Rt > lT KNEE, ITB IMPACTING Rt LAT KNEE, AND FLUCTUATING PAIN IN Rt PATELLA-> ACTIVITY DEPENDENT. THE Pt IS VERY MOTIVATED FOR PT TO REVISE HEP AND ADDRESS THE ABOVE FINDINGS FOR OPTIMAL SX MGMT. HE AGREES W THE PT POC AND WE WILL PROCEED ACCORDINGLY. Frequency and Duration: The patient will be seen 2 x WK x 4 WKS Short Term Goals: DECR Rt KNEE/ PATELLAR PAIN TO 2-3/10 AT MAX INITIATE HEP-> Pt DEMON APPROP CORE ENGAGEMENT W PROGR EX IMPROVE SQUAT MECHANICS INCR HIP/ ITB / CALF FLEXIB INCR EFFICIENT GLUTE ACTIV Chcf Goals: Pt INDEP W HEP AND SELF SX MGMT TECHN Pt RESUME / PERF REG ADLs-> ECCENTRIC STAIR MGMT/ LUNGES/ FITNESS W/O EXACERBATION OF Rt KNEE SXS Rt LE STRENGTH INCR BY 1 GRADE/ EFFICIENT W LUMBOPELVUC STAB Treatment Plan: Modalities to reduce pain, spasms and effusion. Manual therapy to restore motion and function. Therapeutic exercise to improve strength and flexibility. Neuromuscular re-education for posture and balance. Therapeutic activities to return to functional activities of daily living. Electronically signed by: DONNELL NIXON,PT Please sign and return to therapist. Thank you for your referral.
--- NOTE | 2024-12-21 09:25 | MHC.PT.DC ---
[facility] [place] Office [place] Office [place] Office [address] [phone] F: [phone] F: [phone] F: [phone] F: [phone] Physical Therapy Discharge Report Diagnosis: Rt KNEE PATELLOFEMORAL ARTHRITIS Date of Surgery: Date of Evaluation: 09/07/24 Date of Discharge: 12/21/24 Treatments to Date: 6 Cancellations to Date: 3 No Shows to Date: Discharge Status: Achieved Goals Improved Function Independent with HEP Discharge Summary: RICKY PROGRESSED WELL IN PT- WE MODIFIED AND ADVANCED HIS HEP, EDUC RE EXER TO AVOID IN HIS GYM CLASSES-> HE HAD MILD Rt PFPS W ADLS REQ INCR ECCENTRIC QUAD WORK, WHICH, WAS DECR BY INCR HIP HINGE TO DECR COMPENSATORY ANT TIBIAL TRANSLATION. HE IS INDEP W SELF- KT APPLIC TO REDUCE INFRAPTELLAR FAT PAD IRRIT- THE Pt DID NOT ATTEND LAST SCHED PT SESSION, THEREFORE, A FORMAL REASSESSMENT WAS NOT PERF. Electronically signed by: DONNELL NIXON,PT Please sign and return to therapist. Thank you for your referral.
== END 2024-12-21 09:26 | disposition home or self-care (01) ==
LOC: HO.PT 13:57
PROVIDERS: PCP Physician Assistant; Visit Provider Physician Assistant
DX: M17.11 Unilateral primary osteoarthritis, right knee (principal)
CPT/HCPCS: 97110; 97140; 97162; 97530

== ENCOUNTER 2025-07-12 09:00 | Outpatient (AMB) | payer OTHER, SELFPAY ==
[2025-07-12 09:10] VITALS: BP 148/100; PULSE 76; TEMP 36.3; O2SAT 95; BMI 32.1
--- NOTE | 2025-07-12 09:10 | A.OFFPC_ITS ---
Vital Signs 07/12/25 09:10 Height 6 ft 1 in Weight 243 lb 6 oz BMI 32.1 BP 148/100 H Blood Pressure Location Lt brachial Position Sitting Pulse 76 Pulse Source Pulse Oximeter Temp 97.3 F Temp Source Temporal Artery Scan Pulse Oximetry (%) 95 Oxygen Delivery Method Room Air Intake Visit Reasons: Annual Exam Allergies shellfish derived Allergy (Verified 07/12/25 09:16) itchy throat Medication List - Last Reconciled 07/12/25 by Michael Ramirez PA-C No Known Home Meds Tobacco use date assessed: 07/12/25 Dental Screening Dental Screen Date: 07/12/25 Did you have a dental visit in the last 12 months?: Yes Did you have a dental problem in the last 6 months where you did not have access to dental care?: No Was dental information given to patient?: Patient has dentist HPI Annual Exam HPI Details Patient is a 54-year-old male here today for a routine annual physical.? Patient has a past medical history of obesity, microscopic hematuria, family history of prostate cancer. Concern-- > Have noted elevated blood pressure readings today 140 systolic and above. He will commence blood pressure monitoring at home. . The patient experiences sleep disturbances, characterized by snoring and non- restorative sleep. He is concerned about the possibility of obstructive sleep apnea and is interested in undergoing a sleep study. Also The patient describes intermittent episodes of anxiety manifested as(? Shortness of breath), which he attributes to stress related to recent life changes, including job loss and financial concerns. He has previously engaged in therapy but discontinued due to financial constraints. Family history of prostate cancer. Most recent PSA at 0.52. Has noted a decreased urinary Will continue to follow on annual basis. .. Class 1 Obese: Unfortunately gained weight since last office visit. He does admit to some dietary indiscretion. ? Does understand his BMI is over 30 will work on being more physically active in adapting to better eating habits to reduce his weight Vaccine: UTD with COVID vaccine, considering flu vaccine, , up-to-date with the shingles vaccine, ? Tdap vaccine Colorectal cancer screen: Has gotten colonoscopy Sep 2019 - clean repeat 10 years. [facility] Medical History Microscopic hematuria Hypercholesteremia Family history of malignant neoplasm of prostate Surgical History H/O colonoscopy History of right knee joint replacement H/O vasectomy Family History Father Prostate cancer Paternal Grandfather Prostate cancer Mother Lung cancer Sister Thyroid cancer Breast cancer Social History (Updated 07/12/25 @ 09:22 by Michael Ramirez PA-C) Housing: House Alcohol intake: current Alcohol intake frequency: a few times a month Alcohol type: beer Patient Tobacco Use Status: Former Tobacco user Tobacco use type: Cigarette e-Cigarette/Vaping Use: Never Used Second Hand Smoke Exposure: No service: No Current occupational status: employed 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 1. Little interest or pleasure in doing things: not at all 2. Feeling down, depressed, or hopeless: several days 3. Trouble falling or staying asleep, or sleeping too much: several days 4. Feeling tired or having little energy: several days 5. Poor appetite or overeating: not at all 6. Feeling bad about yourself - or that you are a failure or have let yourself or your family down: several days 7. Trouble concentrating on things, such as reading the newspaper or watching television: not at all 8. Moving or speaking so slowly that other people could have noticed. Or the opposite - being so fidgety or restless that you have been moving around a lot more than usual: not at all 9. Thoughts that you would be better off or of hurting yourself in some way: not at all Total score: 4 Depression Screening Interpretation: Positive Depression Screening Follow-up: Existing condition Depression Screening Done: Yes 70900 - PHQ-9 Billing: Yes Source: Developed by Drs. Frantz Perez, Kim Marcus, Tomi Flores and colleagues, with an educational chacha from [employer]. Thrive Questionnaire Date Thrive assessed: 07/05/25 I am a: Patient What is your living situation today?: I have a steady place to live Within the past 12 months, did the food you bought not last and you didn't have the money to get more?: Never true Within the past 12 months, did you worry whether your food would run out before you got money to buy more?: Never true Do you have trouble paying for medicines?: No Do you have trouble getting transportation to medical appointments?: No Do you have trouble paying your heating and electricity bill?: No Do you have trouble taking care of your child, family member or friend?: No Do you have trouble with day-to-day activities such as bathing, preparing meals, shopping, managing finances, etc.?: No Are you currently unemployed and looking for a job?: Yes Are you interested in more education?: No Please select the resources that you would like help with: None Currently or been in a relationship where the following occur: No concerns reported THRIVE Score: 0 AUDIT C Alcohol Use Questionnaire (AUDIT-C) 1. How often do you have a drink containing alcohol?: 2-4 times a month 2. How many drinks containing alcohol do you have on a typical day when you are drinking?: 1 or 2 3. How often do you have six or more drinks on one occasion?: Less than monthly Total Score: 3 MAGUI-7 AMB Questionnaire MAGUI-7 Date MAGUI - 7 assessed: 07/12/25 Feeling nervous, anxious, or on edge: 1 = Several days Not being able to stop or control worryin = Several days Worrying too much about different things: 1 = Several days Trouble relaxin = Several days Being so restless that it is hard to sit still: 0 = Not at all Becoming easily annoyed or irritable: 0 = Not at all Feeling afraid as if something awful might happen: 0 = Not at all Total MAGUI-7 score (0-4 normal; 5-9 mild; 10-14 moderate; 15-21 severe): 4 Source: Developed by Drs. Frantz Perez, Kim Marcus, Tomi Flores and colleagues, with an educational chacha from [employer]. MAGUI-7 Assessment Billing MAGUI-7 Assessment Tool: MAGUI-7 Assessment 92906 Review of Systems Const Denies body aches, Denies chills, Denies excessive sweating, Denies fatigue, Denies fever(s) and Denies headache(s) Eyes Denies blurry vision ENT Denies dysphagia, Denies vertigo, Denies dizziness, Denies headache(s), Denies hearing loss and Denies tinnitus Card Denies chest pain, Denies chest pain with activity, Denies syncope, Denies irregular heart rhythm and Denies dyspnea Resp Denies chest congestion, Denies cough, Denies hemoptysis, Denies dyspnea and Denies wheezing GI Denies abdominal pain, Denies melena, Denies hematochezia, Denies coffee ground emesis, Denies dysphagia, Denies diarrhea, Denies nausea and Denies vomiting Denies difficulty urinating, Denies dysuria, Denies urinary frequency, Denies urinary hesitancy and Denies urinary urgency Musc Denies arthralgias, Denies limited range of motion, Denies muscle cramps and Denies muscle weakness Skin/Breast Denies rash and Denies skin ulcer Neuro Denies Abnormal speech present, Denies confusion, Denies vertigo, Denies dizziness, Denies syncope, Denies headache(s), Denies memory loss and Denies seizure-like activity Psych Denies anxiety, Denies confusion, Denies depression, Denies memory loss, Denies panic attacks and Denies paranoia Endo Denies excessive sweating, Denies fatigue, Denies flushing, Denies polydipsia and Denies polyuria Aller/Immun Denies wheezing Physical exam (Primary Care) Vital Signs: Last Vital Signs Temp 97.3 F 07/12/25 09:10 Pulse 76 07/12/25 09:10 BP 148/100 H 07/12/25 09:10 Pulse Ox 95 07/12/25 09:10 Oxygen Delivery Method Room Air 07/12/25 09:10 BMI result Body Mass Index 32.1 BMI Assessment/Plan discussion: High BMI High, discussed plan: lifestyle, weight reduction, dietary and physical activity Tobacco/Smoking Status: Tobacco use Status Tobacco use date assessed 07/12/25 07/12/25 09:13 Patient Tobacco Use Status Former Tobacco user 07/12/25 09:22 Tobacco use type Cigarette 07/12/25 09:22 e-Cigarette/Vaping Use Never Used 07/12/25 09:22 PHQ-9: PHQ-9 Score PHQ-9: Total score 4 07/12/25 09:54 Depression Screening Interpretation: Positive Depression Screening Follow-up: Existing condition Thrive Assessment: Date of Thrive Assessment Date Thrive assessed 07/05/25 07/12/25 09:13 Currently or been in a relationship where the following occur: No concerns reported Const General: cooperative, comfortable, no acute distress, alert and awake; No confusion Orientation/consciousness: oriented to person, oriented to place, patient oriented x3 and No confusion HENMT Head: Yes normocephalic Ears: external ears normal and TM's normal bilaterally Face and sinus: No sinus tenderness Mouth: Normal oral and palatal mucosa present and tongue normal Teeth and gingiva: dentition normal and gingiva normal Throat: Yes posterior oropharynx normal, Yes tonsils normal and Yes uvula midline Eyes Conjunctivae: conjunctivae normal Sclerae: sclerae normal Pupils: Equal, round and reactive pupils present EOM: EOMs intact bilaterally Direct Ophthalmoscopy: No no photophobia Neck Neck: Yes no lymphadenopathy, No tender and Yes no JVD Thyroid: Thyroid normal Carotids: no bruits Chest Chest palpation & inspection: no tenderness Resp Effort & Inspection: normal respiratory effort, no audible wheezes, not labored and no stridor Auscultation: no crackles, no rales, no rhonchi and no wheezes Cardio Jugular venous distension: no JVD Rate: regular rate, not bradycardic and not tachycardic Rhythm: regular rhythm Bruits: no carotid bruits Peripheral pulses: Peripheral pulses 2+ throughout GI Inspection: Yes normal to inspection, No abdominal wall ecchymosis and No visib le herniation Palpation (GI): Soft to palpation, nontender, no guarding, not rigid and No hepatosplenomegaly present Auscultation: normoactive bowel sounds General: Yes no CVA tenderness Back/Spine/Pelvis Back: no CVA tenderness and No back tenderness Cervical Spine: cervical ROM normal Thoracic/Lumbar Spine: thoracic and lumbar spine normal to inspection, straight leg raise negative bilaterally, No thoraco-lumbar ROM limited and No lumbar spinal tenderness Skin Lesions: no lesions Rashes: no rashes Wounds: no wounds Neuro General: oriented to person, oriented to place, patient oriented x3, CN's II-XI intact bilaterally and No confusion Cranial nerves: Yes Equal, round and reactive pupils present and Yes Normal accommodation reflex present Cognition (Neuro): normal cognition Speech: No Abnormal speech present Gait exam (Neuro): Normal gait present Motor exam (neuro): 5/5 motor strength present throughout Extrem Right upper extremity: full ROM; no cyanosis Left upper extremity: full ROM; no cyanosis Right lower extremity: no edema Left lower extremity: no edema Psych Appearance: grossly normal Mental Status: mental status grossly normal Affect: normal affect Attitude: cooperative Thought process: Normal thought process present Office Procedures Flu Questionnaire Does the patient have a severe egg allergy?: No Does the patient have severe life threatening allergies?: No Does the patient have a fever or illness today?: No Has the patient ever had Guillain-Northwood Syndrome?: No Has the patient ever had any past reaction to a flu shot?: No Immunizations Fluarix [id number] (PF) 45 mcg (15 mcg x 3)/0.5 mL IM syringe Performing Provider: Michael Ramirez PA-C Performing Location: [facility] [place] Primary [facility] Administered by: Kimmie Otero CMA on 07/12/25 09:55 Dose Route Admin Location Dispensed Lot Number Expiration Date [place] Busgirl 0.5 mL IM Left Deltoid 0.5 mL [id number] 03/21/26 36601-611-12 [employer] VIS Given Date VIS Provided VIS Publication Date 07/12/25 Single Vaccine 24 Eligibility Eligibility Date Funding Source Not VFC Eligible 07/12/25 Private Boostrix Tdap 2.5 Lf unit-8 mcg-5 Lf/0.5 mL intramuscular syringe Performing Provider: Michael aRmirez PA-C Performing Location: [facility] [place] [facility] Administered by: Kimmie Otero CMA on 07/12/25 09:55 Dose Route Admin Location Dispensed Lot Number Expiration Date ND Busgirl 0.5 mL IM Left Deltoid 0.5 mL [id number] 07/15/27 06496-468-37 [employer] Total Dispensed Waste 0.5 mL 0 % VIS Given Date VIS Provided VIS Publication Date 07/12/25 Single Vaccine 21 Eligibility Eligibility Date Funding Source Not VFC Eligible 07/12/25 Private Coding Level of Care Code Est Pt Prev Care 40-64y(67022) Diagnoses Annual physical exam Z00.00 Borderline high cholesterol E78.9 Family history of prostate cancer in father Z80.42 Elevated blood pressure reading R03.0 Class 1 obesity E66.9 DENIA (obstructive sleep apnea) G47.33 Shortness of breath R06.02 MAGUI (generalized anxiety disorder) F41.1 Additional Codes MAGUI-7 Assessment Billing - MAGIU-7 Assessment Tool: MAGUI-7 Assessment 08930 ([id number]) PHQ-9 - 78846 - PHQ-9 Billing: Yes ([id number]) Assessment & Plan Assessment & Plan (1) Annual physical exam: Code(s): Z00.00 - Encounter for general adult medical examination without abnormal findings Category: Medical Plan: As per HPI (2) Borderline high cholesterol: Code(s): E78.9 - Disorder of lipoprotein metabolism, unspecified Category: Medical Plan: Patient has a history of borderline cholesterol. Has been working on dietary and lifestyle modifications to reduce his cholesterol. Will recheck fasting lipids with goal total cholesterol to be below 200 (3) Family history of prostate cancer in father: Code(s): Z80.42 - Family history of malignant neoplasm of prostate Category: Medical Plan: Patient does have strong family history of prostate cancer. Most recent PSA has been normal. Will continue to follow PSA. Denies any particular urinary symptoms though does report getting up once at night to urinate though he attributes to fluid intake in the afternoons. (4) Elevated blood pressure reading: Code(s): R03.0 - Elevated blood-pressure reading, without diagnosis of hypertension Category: Medical Plan: NOTED ELEVATED BLOOD PRESSURE READING TODAY IN OFFICE. Patient will start to monitor his blood pressure at home and if consistently 140 systolic will consider low-dose blood pressure medication (5) Class 1 obesity: Code(s): E66.9 - Obesity, unspecified Category: Medical Plan: Noted weight gain since last office visit. (6) DENIA (obstructive sleep apnea): Code(s): G47.33 - Obstructive sleep apnea (adult) (pediatric) Category: Medical Plan: Patient concerned about obstructive sleep apnea as he is reported to have snoring. Does have risk for obstructive sleep apnea. (7) Shortness of breath: Code(s): R06.02 - Shortness of breath Category: Medical Plan: A cardiac stress test is recommended to rule out any cardiac issues related to his intermittent chest sensations and elevated blood pressure (8) MAGUI (generalized anxiety disorder): Code(s): F41.1 - Generalized anxiety disorder Category: Medical Plan: Patient's MAGUI-7 score positive for anxiety. He does admit to having a bit of anxiety lately due to personal issue. He generally has been managing well and is not interested in any medication. He is considering going back to mental health therapy. Orders: Orders Lipid Panel Today E78.9 - Disorder of lipoprotein metabolism, unspecified Comprehensive [place]. Panel Fast Today E78.9 - Disorder of lipoprotein metabolism, unspecified TDaP Immunization Today R06.02 - Shortness of breath, Z23 - Encounter for immunization Influenza [id number] Immunization Today Z23 - Encounter for immunization Prostate Specific Antigen Scr Today N40.1 - Benign prostatic hyperplasia with lower urinary tract symptoms, Z12.5 - Encounter for screening for malignant neoplasm of prostate UA CC w/rflx Micro + Cult Today R30.0 - Dysuria, R31.29 - Other microscopic hematuria Complete Blood Count no Diff Today E78.9 - Disorder of lipoprotein metabolism, unspecified RT home sleep study Today G47.33 - Obstructive sleep apnea (adult) (pediatric) CA stress test Today R06.02 - Shortness of breath
== END 2025-07-12 09:58 | disposition home or self-care (01) ==
LOC: HO.HMCH 09:01
PROVIDERS: PCP Physician Assistant; Visit Provider Physician Assistant
DX: Z00.00 Encounter for general adult medical examination without abnormal findings (principal); E78.9 Disorder of lipoprotein metabolism, unspecified; Z80.42 Family history of malignant neoplasm of prostate; R03.0 Elevated blood-pressure reading, without diagnosis of hypertension; E66.9 Obesity, unspecified; G47.33 Obstructive sleep apnea (adult) (pediatric); R06.02 Shortness of breath; F41.1 Generalized anxiety disorder; Z23 Encounter for immunization

== ENCOUNTER → 2025-07-12 09:00 | Outpatient (BNVA) | payer OTHER, SELFPAY | PROVIDERS: PCP Physician Assistant; Visit Provider Physician Assistant | DX: Z00.00 Encounter for general adult medical examination without abnormal findings (principal); Z23 Encounter for immunization; E78.9 Disorder of lipoprotein metabolism, unspecified; R03.0 Elevated blood-pressure reading, without diagnosis of hypertension; E66.9 Obesity, unspecified; Z68.32 Body mass index [BMI] 32.0-32.9, adult; G47.33 Obstructive sleep apnea (adult) (pediatric); R06.02 Shortness of breath; F41.1 Generalized anxiety disorder; Z80.42 Family history of malignant neoplasm of prostate; Z13.31 Encounter for screening for depression; Z13.39 Encounter for screening examination for other mental health and behavioral disorders | CPT/HCPCS: 90471; 90472; 90656; 90715; 96127 ==

== ENCOUNTER 2025-07-19 07:42 | Outpatient (REF) | payer OTHER, SELFPAY ==
[2025-07-19 10:17] LABS: Appearance Urine Clear; Glucose Urine UA Negative (Negative); PH 7.5 (5.0-9.0); Specific Gravity - Urine 1.020 (1.005-1.025)
[2025-07-19 10:23] LABS: Hematocrit 45.1 % (42.0-52.0); Hemoglobin 14.9 g/dl (14.0-18.0); Mean Corpuscular HGB Conc 33.0 g/dl (31.0-36.0); Mean Corpuscular Hemoglobin 27.7 pg (27.0-33.0); Mean Corpuscular Volume 83.8 fL (80.0-98.0); NRBC Abs Auto 0.000 X10*3/uL (0.0-0.012); NRBC Pct Auto 0.0 /100WBC (0.0-0.2); Platelet Count 198 X10*3/uL (160-400); Red Blood Count 5.38 X10*6/uL (4.60-5.80); White Blood Count 5.9 X10*3/uL (4.8-10.8)
[2025-07-19 10:37] LABS: Alanine Aminotransferase 12 U/L (0-40); Albumin Level 4.2 g/dL (3.5-5.0); Alkaline Phosphatase 80 U/L (39-117); Anion Gap 10 (12-20); Aspartate Amino Transferase 24 U/L (5-37); Blood Urea Nitrogen 18 mg/dL (9-16); Calcium 8.9 mg/dL (8.4-10.2); Carbon Dioxide 28 mmol/L (22-29); Chloride 108 mmol/L (96-108); Cholesterol 204 mg/dL (<200); Estimated Glomerular Filt Rate > 60; HDL Cholesterol 40 mg/dL (>40); Potassium 4.5 mmol/L (3.3-5.1); Sodium 141 mmol/L (135-145); Total Protein 6.7 g/dL (6.5-8.0); Triglycerides 139 mg/dL (<150)
== END 2025-07-19 07:43 | disposition home or self-care (01) ==
LOC: HO.10HDL 07:42
PROVIDERS: Visit Provider Physician Assistant
DX: N40.1 Benign prostatic hyperplasia with lower urinary tract symptoms (principal); R30.0 Dysuria; R31.29 Other microscopic hematuria; E78.9 Disorder of lipoprotein metabolism, unspecified; Z12.5 Encounter for screening for malignant neoplasm of prostate
CPT/HCPCS: 36415; 80053; 80061; 81003; 84153; 85027

== ENCOUNTER → 2025-08-25 14:02 | Outpatient (REF) | payer OTHER, SELFPAY | LOC: HO.SL 14:02 | PROVIDERS: PCP Physician Assistant; Visit Provider Physician Assistant | DX: G47.33 Obstructive sleep apnea (adult) (pediatric) (principal) | CPT/HCPCS: 95806 ==

== ENCOUNTER → 2025-08-25 14:12 | Outpatient (BNV) | payer OTHER, SELFPAY | PROVIDERS: PCP Physician Assistant; Visit Provider Psychiatry & Neurology Neurology | DX: G47.33 Obstructive sleep apnea (adult) (pediatric) (principal) | CPT/HCPCS: 95806 ==